=== PATIENT | female | born 1955 | race Caucasian/White ===

== ENCOUNTER 2017-11-13 10:18 | Emergency (ER) | payer MEDICAID, OTHER ==
[~2017-11-13] VITALS: Ht 160 cm; Wt 89.1 kg
[2017-11-13 10:23] VITALS: BP 154/70
[2017-11-13] MEDS ORDERED: diphenhydrAMINE 25mg capsule PO ONE (11:20)
[2017-11-13] MEDS ORDERED: methylPREDNISolone sod succ 125mg/2ml vial IM ONE (11:20)
[2017-11-13] MEDS ORDERED: PRED10TA23 PO (12:39)
== END 2017-11-13 12:45 | disposition home or self-care (01) ==
LOC: ER 10:19
DX: T63.441A Toxic effect of venom of bees, accidental (unintentional), initial encounter (principal); Z88.8 Allergy status to other drugs, medicaments and biological substances; Z79.899 Other long term (current) drug therapy; Y92.89 Other specified places as the place of occurrence of the external cause
CPT/HCPCS: 96372; 99284; J2930; Q0163